=== PATIENT | female | born 1985 | race Hispanic/Latino ===

== ENCOUNTER 2023-05-09 09:02 | Emergency (ER) | payer MEDICAID ==
[~2023-05-09] VITALS: Ht 152.4 cm; Wt 68.4 kg
[2023-05-09 09:22] VITALS: BP 118/79
[2023-05-09 09:30] VITALS: BP 117/85
[2023-05-09 09:45] VITALS: BP 129/77
[2023-05-09 12:42] LABS: BASO% 0.2 % (0-3); EOS% 0.6 % (0-8); HEMATOCRIT 44.1 % (37.0-47.0); HEMOGLOBIN 14.2 g/dl (12.0-16.0); IMMATURE GRANULOCYTES 0.1 % (0.0-5.0); LYMPH% 18.3 % (15-41); MEAN CELL VOLUME 87.8 fL CALC (80.0-100.0); MEAN CORPUSCULAR HGB 28.3 pG CALC (26.0-32.0); MEAN CORPUSCULAR HGB CONC 32.2 g/dL CAL (32.0-36.0); MONO% 6.9 % (2-13); NEUT# 7.24 thou/uL (2.00-7.15); NEUT% 73.9 % (42-76); RED BLOOD COUNT 5.02 mill/uL (4.20-5.60); RED CELL DISTRI WIDTH 12.1 % (11.5-15.5)
[2023-05-09 12:49] LABS: URINE BILIRUBIN - DIPSTICK Negative (NEGATIVE); URINE BLOOD DIPSTICK Trace-intact (NEGATIVE); URINE CLARITY Clear; URINE GLUCOSE - DIPSTICK Negative (NEGATIVE); URINE KETONE 15 mg/dL (NEGATIVE); URINE LEUK ESTERASE Negative (Negative); URINE NITRITE - DIPSTICK Negative (Negative); URINE PH 8.5 (4.5-8.0); URINE PROTEIN - DIPSTICK Negative (NEG-TRACE); URINE UROBILINOGEN - DIPSTICK 0.2 E.U./dL (0.2)
[2023-05-09 12:50] LABS: URINE COLOR Yellow
[2023-05-09 13:31] LABS: ALBUMIN 4.6 g/dL (3.2-5.0); ALKALINE PHOSPHATASE 80 u/l (38-126); AMYLASE 48 u/l (30-110); ANION GAP 14 (6-22 (CALC)); BUN 6 mg/dL (7-17); BUN/CREATININE RATIO 9 (12-20 (CALC)); CARBON DIOXIDE 26 mmol/l (22-30); CHLORIDE 102 mmol/l (95-108); CREATININE 0.6 mg/dL (0.5-1.0); GFR FOR AFR.AMER. > 60 ML/MIN (>=60 (CALC)); GFR OTHER RACES > 60 ML/MIN (>=60 (CALC)); LIPASE 48 u/l (23-300); POTASSIUM 4.1 mmol/l (3.5-5.1); SGOT/AST 26 u/l (14-36); SODIUM 139 mmol/l (137-146); TOTAL PROTEIN 8.2 g/dL (6.3-8.2)
[2023-05-09 13:32] LABS: BILIRUBIN, TOTAL 0.7 mg/dL (0.02-1.3)
[2023-05-09 17:49] VITALS: BP 120/82
[2023-05-10] MEDS ORDERED: PROTONIX40 M2 PO (19:01)
== END 2023-05-09 17:51 | disposition home or self-care (01) ==
LOC: ED 09:02
PROVIDERS: Family Medicine
DX: K29.70 Gastritis, unspecified, without bleeding (principal)
CPT/HCPCS: S0164

== ENCOUNTER 2023-09-23 07:57 | Emergency (ER) | payer MEDICAID ==
[~2023-09-23] VITALS: Ht 157.5 cm; Wt 72.5 kg
[~2023-09-23 07:57] MED LIST: KETOROLAC10 MG PO; PROTONIX40 M2 PO
[2023-09-23 08:04] VITALS: BP 125/82
[2023-09-23 08:15] VITALS: BP 130/87
[2023-09-23 08:30] VITALS: BP 120/80
[2023-09-23] MEDS ORDERED: CHERATUSSIN PO (08:35)
[2023-09-23] MEDS ORDERED: ZPAK PO (08:35)
[2023-09-23] MEDS ORDERED: ALBUTEROL SUL0.083 % IN (08:35)
[2023-09-23 08:45] VITALS: BP 125/76
== END 2023-09-23 08:55 | disposition home or self-care (01) ==
LOC: ED 07:57
DX: J06.9 Acute upper respiratory infection, unspecified (principal)